=== PATIENT | male | born 1975 | race Caucasian/White ===

== ENCOUNTER → 2018-08-01 | Outpatient (CLI) | payer OTHER ==
[2018-08-01] MEDS: IOHEXOL 300 MG/ML 75 ML VIAL. IV ONE (09:15)
--- NOTE | 2018-08-01 12:05 | RAD ---
CT of the chest with contrast, 08/01/2018: HISTORY: Pulmonary nodules Multidetector CT imaging was performed following an IV bolus injection of iodinated contrast material. The thoracic aorta is unremarkable. There are scattered calcifications in the left coronary artery circulation. No mediastinal or hilar adenopathy is seen. No pulmonary infiltrate, mass or nodularity is seen. There is no evidence of pleural fluid. IMPRESSION: 1. Coronary artery calcifications. 2. No other significant abnormality is detected. Electronically signed by: Edil Calvo MD (08/01/2018 12:02 PM) [facility]
== END | disposition home or self-care (01) ==
LOC: CT 08:18
PROVIDERS: ATTEND Family Medicine
DX: Z11.1 Encounter for screening for respiratory tuberculosis (principal); I25.10 Atherosclerotic heart disease of native coronary artery without angina pectoris; E78.00 Pure hypercholesterolemia, unspecified; Z88.8 Allergy status to other drugs, medicaments and biological substances
CPT/HCPCS: 71260; Q9967